=== PATIENT | female | born 1950 | race African-American/Black ===

== ENCOUNTER 2024-12-24 08:01 | Outpatient (CLI) | payer BC, MEDICARE, SELFPAY ==
--- NOTE | 2024-12-24 09:38 | P.ANES_ITS ---
Anesthesia Charges Start Date/Time Anesthesia Start Date: 12/24/24 Anesthesia Start Time: 08:52 Stop Date/Time Anesthesia Stop Date: 12/24/24 Anesthesia Stop Time: 09:36 Summary Extremes of Age - Over 70 or under 1: EFFICIENCY EXPERT Coding CPT Codes CPT Codes: ANES UPR LWR GI NDSC PX - 52938 ([id number]) P2 - PATIENT W/MILD SYST DISEASE, QK - EMPLOYMENT REPRESENTATIVE 2-4 CNCRNT ANES PROC, QX - EFFICIENCY EXPERT SVC W/ MD MED DIRECTION Additional Codes: Summary - Extremes of Age - Over 70 or under 1: EFFICIENCY EXPERT ([id number])
--- NOTE | 2024-12-24 09:38 | W.ANESCHARGE ---
Anesthesia Charges Start Date/Time Anesthesia Start Date: 12/24/24 Anesthesia Start Time: 08:52 Stop Date/Time Anesthesia Stop Date: 12/24/24 Anesthesia Stop Time: 09:36 Summary Extremes of Age - Over 70 or under 1: SAMPLE HAND Coding CPT Codes CPT Codes: ANES UPR LWR GI NDSC PX - 52735 ([id number]) P2 - PATIENT W/MILD SYST DISEASE, QK - BATCH FREEZER 2-4 CNCRNT ANES PROC, QX - SAMPLE HAND SVC W/ MD MED DIRECTION Additional Codes: Summary - Extremes of Age - Over 70 or under 1: SAMPLE HAND ([id number])
--- NOTE | 2024-12-24 09:58 | P.ANES_ITS ---
Anesthesia Charges Start Date/Time Anesthesia Start Date: 12/24/24 Anesthesia Start Time: 08:52 Stop Date/Time Anesthesia Stop Date: 12/24/24 Anesthesia Stop Time: 09:36 Summary Extremes of Age - Over 70 or under 1: MDA Coding CPT Codes CPT Codes: ANES UPR LWR GI NDSC PX - 97220 ([id number]) QK - PILOT MANAGER 2-4 CNCRNT ANES PROC, QX - REPAIRER RECREATIONAL VEHICLE SVC W/ MD MED DIRECTION, P3 - PATIENT W/SEVERE SYS DISEASE Additional Codes: Summary - Extremes of Age - Over 70 or under 1: MDA ([id number])
== END 2024-12-24 08:02 | disposition home or self-care (01) ==
PROVIDERS: Visit Provider Internal Medicine Gastroenterology
DX: D50.9 Iron deficiency anemia, unspecified (principal); D12.2 Benign neoplasm of ascending colon; D12.3 Benign neoplasm of transverse colon; K57.30 Diverticulosis of large intestine without perforation or abscess without bleeding
CPT/HCPCS: 00813; 43239; 45385; 88305; 99100; J2704; J3490